=== PATIENT | male | born 1995 | race Caucasian/White ===

== ENCOUNTER 2024-08-27 19:27 | Emergency (ER) | payer OTHER ==
[2024-08-27 20:06] VITALS: BP 115/84; PULSE 62; RESP 18; TEMP 98.1; BMI 24.3
[2024-08-27] MEDS ORDERED: ACETAMINOPHEN 500 MG TABLET (FP) ONE (20:25)
[2024-08-27] MEDS ORDERED: IBUPROFEN 600 MG TABLET (FP) PO ONE (20:25)
[2024-08-27] MEDS: IBUPROFEN 600 MG TABLET (FP) PO ONE (20:33)
[2024-08-27] MEDS: ACETAMINOPHEN 500 MG TABLET (FP) PO ONE (20:33)
== END 2024-08-27 22:50 | disposition home or self-care (01) ==
LOC: JERFT 19:27 → JER 19:27 → JERFT 22:50
DX: S93.402A Sprain of unspecified ligament of left ankle, initial encounter (principal); X50.1XXA Overexertion from prolonged static or awkward postures, initial encounter
CPT/HCPCS: 73610-TC-LT-FY; 73630-TC-LT; 99283-25